=== PATIENT | male | born 1950 | race Caucasian/White ===

== ENCOUNTER → 2020-07-30 | Outpatient (CLI) | payer MEDICARE ==
--- NOTE | 2020-07-30 14:55 | XR ---
EXAMINATION TYPE: XR chest 2V DATE OF EXAM: 07/30/2020 CLINICAL HISTORY: C61,Z01.818,R58,R53.83,R05. TECHNIQUE: Frontal and lateral view of the chest. COMPARISON: 05/16/2015 chest radiograph FINDINGS: Mildly prominent interstitial lung markings redemonstrated, which may represent emphysemat ous change. The cardiomediastinal silhouette is within normal limits for size. Pulmonary vasculature is normal. There is no focal air space opacity, pleural effusion, or pneumothorax seen. The osseous s tructures are intact. IMPRESSION: No acute cardiopulmonary process.
[2020-07-30 15:09] LABS: Basophils # (A) 0.1 k/uL (0-0.2); Basophils % (A) 1 %; Eosinophils # (A) 0.1 k/uL (0-0.7); Eosinophils % (A) 1 %; HCT 45.1 % (39.0-53.0); HGB 14.5 gm/dL (13.0-17.5); Lymphocytes # (A) 1.6 k/uL (1.0-4.8); Lymphocytes % (A) 23 %; MCH 29.1 pg (25.0-35.0); MCHC 32.2 g/dL (31.0-37.0); MCV 90.5 fL (80.0-100.0); Mean Platelet Volume 7.8; Monocytes # (A) 0.3 k/uL (0-1.0); Monocytes % (A) 4 %; Neutrophils # (A) 4.7 k/uL (1.3-7.7); Neutrophils % (A) 68 %; Platelet Count 207 k/uL (150-450); RBC 4.98 m/uL (4.30-5.90); RDW 13.8 % (11.5-15.5); WBC 6.9 k/uL (3.8-10.6)
[2020-07-30 15:11] LABS: African American GFR (CKD) >90 (>60 ml/min/1.73 sqM); Anion Gap 4 mmol/L; Blood Urea Nitrogen 15 mg/dL (9-20); Calcium 9.3 mg/dL (8.4-10.2); Carbon Dioxide 25 mmol/L (22-30); Chloride 109 mmol/L (98-107); Glucose 94 mg/dL (74-99); Non-African American GFR(CKD) 87 (>60 ml/min/1.73 sqM); Potassium 4.5 mmol/L (3.5-5.1); Sodium 138 mmol/L (137-145)
[2020-07-30 15:13] LABS: Prothrombin Time 10.4 sec (9.0-12.0)
== END | disposition home or self-care (01) ==
LOC: LABPAT 13:26
PROVIDERS: ATTEND Urology
DX: Z01.818 Encounter for other preprocedural examination (principal); C61 Malignant neoplasm of prostate; R05 Cough; R58 Hemorrhage, not elsewhere classified; R53.83 Other fatigue
CPT/HCPCS: 71046; 80048; 85025; 85610; 93005

== ENCOUNTER 2020-08-06 10:56 | Day surgery (SDC) | payer MEDICARE ==
--- NOTE | 2020-08-04 08:26 | P.HPIHPCON ---
History of Present Illness H&P Date: 08/06/20 Chief Complaint: prostate cancer Mr Desai is 70 yo male with hx of gavi 7 (3+4) prostate cancer. We discussed with him the options including surgery and radiation therapy. We discussed the risk and benefits with him of each approach. I discussed with surgery the risk of urinary incontinence and erectile dysfunction, I also discussed with him risk of injury to nearby organs including bowels and rectum and blood vessels. I also discussed the risk from anesthesia with him. Which included but not limited to blood clots, heart attack, stroke and even . He understood all the risk and agreed to proceed with a robotic-assisted radical prostatectomy and pelvic lymph node dissection Consent for Procedure: I have explained the operation/procedure to the patient, including the risks, benefits, side effects, alternative therapies (including not receiving the proposed treatment or service), the likelihood of the patient achieving his/her goals, and potential recuperation problems for the procedure/sedation/analgesia, as well as any blood products, if indicated. I also explained to the patient the risks, benefits and side effects of the alternatives, as well as the risks related to not receiving the proposed procedure, care, treatment, or services. - Constitutional Constitutional: Denies chills, Denies fever - Respiratory Respiratory: Denies cough, Denies 7 - Gastrointestinal Gastrointestinal: Denies abdominal pain, Denies diarrhea, Denies nausea, Denies vomiting Past Medical History Past Medical History: No Reported History History of Any Multi-Drug Resistant Organisms: None Reported Additional Past Surgical History / Comment(s): right knee Past Psychological History: No Psychological Hx Reported Past Alcohol Use History: Occasional Past Drug Use History: None Reported Medications and Allergies Home Medications Medication Instructions Recorded Confirmed Type Orphenadrine [Norflex] 100 mg PO Q12H #10 tablet.er 08/04/14 Rx Allergies Allergy/AdvReac Type Severity Reaction Status Date / Time No Known Allergies Allergy Verified 08/04/14 19:54 Surgical - Exam - General well developed, well nourished, no distress, no pain - Respiratory normal respiratory effort, clear to auscultation - Abdomen Abdomen: soft, non tender - Psychiatric oriented to time, oriented to person, oriented to place, speech is normal Assessment and Plan Assessment: 70 yo male with hx of gavi 7 (3+4) prostate cancer -OR for robotic prostatectomy possibile pelvic lymph node dissection
[2020-08-05 11:16] VITALS: BMI 25.7
[~2020-08-06 10:56] MED LIST: DEXAMETHASONE SOD PHOSPHATE 10 MG/ML 1 ML VIAL IV ONE; HEPARIN SODIUM,PORCINE 5,000 UNIT/ML 1 ML VIAL SQ ONE; HYDROmorphone 0.5 MG/0.5 ML SYRINGE IVP PRN; ONDANSETRON 4 MG/2 ML VIAL IVP ONE
[2020-08-06] MEDS: LACTATED RINGERS 1,000 ML IV SCH ×2 (11:42→11:52)
[2020-08-06] MEDS ORDERED: LIDOCAINE 1% (10MG/ML) FOR IV START INTRADERMA ONE ×2 (11:43→11:53)
[2020-08-06] MEDS ORDERED: NEOSTIGMINE 1 MG/ML 10 ML VIAL ONE (12:51)
[2020-08-06] MEDS ORDERED: SUCCINYLCHOLINE CHLORIDE 100 MG/5 ML SYR IV ONE (12:51)
[2020-08-06] MEDS ORDERED: fentaNYL (PF) 50 MCG/ML 2 ML AMP ONE (12:51)
[2020-08-06] MEDS ORDERED: HYDROmorphone (PF) 1 MG/ML ONE (12:51)
[2020-08-06] MEDS ORDERED: PROPOFOL 10 MG/ML 20 ML VIAL IV ONE (12:51)
[2020-08-06] MEDS ORDERED: GLYCOPYRROLATE 0.2 MG/ML 2 ML VIAL ONE (12:51)
[2020-08-06] MEDS ORDERED: MIDAZOLAM 2 MG/2 ML VIAL ONE (12:51)
[2020-08-06] MEDS ORDERED: ROCURONIUM 10 MG/ML (10 ML VIAL) IV ONE (12:51)
[2020-08-06] MEDS ORDERED: LIDOCAINE 1% INJ 10MG/ML (20 ML MDV) ONE (12:51)
[2020-08-06] MEDS ORDERED: BUPIVACAINE (PF) 0.25% 30 ML VIAL SQ ONE ×2 (13:27)
[2020-08-06] MEDS ORDERED: LACTATED RINGERS 1,000 ML IV ONE (15:57)
[2020-08-06] MEDS ORDERED: HYDROcodone/APAP 5-325MG 1 EACH TAB PO PRN (17:12)
--- NOTE | 2020-08-06 17:19 | P.OP ---
Date of Procedure: 08/06/20 Preoperative Diagnosis: prostate cancer Postoperative Diagnosis: same Procedure(s) Performed: Robotic assisted laparoscopic prostatectomy Implants: None Anesthesia: ARNOLDO Surgeon: Kenji Adames Estimated Blood Loss (ml): 150 Pathology: other (Prostate, bilateral seminal vesicle) Condition: stable Disposition: PACU Indications for Procedure: Mr Desai is 70 yo male with hx of gavi 7 (3+4) prostate cancer. We discussed with him the options including surgery and radiation therapy. We discussed the risk and benefits with him of each approach. I discussed with surgery the risk of urinary incontinence and erectile dysfunction, I also discussed with him risk of injury to nearby organs including bowels and rectum and blood vessels. I also discussed the risk from anesthesia with him. Which included but not limited to blood clots, heart attack, stroke and even . He understood all the risk and agreed to proceed with a robotic-assisted radical prostatectomy and possible pelvic lymph node dissection Description of Procedure: After preoperative antibiotics were started, the patient was taken to the operating room. Anesthesia was induced and the patient was placed in supine position, with adequate padding of the pressure points, shoulders, back, legs and arms. He was then prepped and draped in the standard fashion. A critical pause was performed using two patient identifiers. A 16F edwards catheter was placed to gravity drainage. Initially attempted to obtain pneumoperitoneum using a Veress needle, but adequate insufflation could not be obtained, at this point decision was made to proceed with gel point placement. Incision was made supraumbilically, cutaneous tissue was dissected using electrocautery. At this time the fascia was identified and incised. The peritoneum was entered sharply, using finger sweeping there was some adhesions along the umbilicus, but no bowel was palpated but rather it was omentum. At this time the gel point was placed, A pneumo-peritoneum was created. Laparos copy was performed which showed no additional adhesions, there appeared to be no injury secondary to the Veress needle. Under direct vision a 8mm robotic ports was placed lateral to each rectus slightly below the camera port. The left iliac fossa 8mm port was placed. The right assistant chief nursing officer right iliac fossa 12mm port and right paramedian 5mm portwere placed. After the patient was placed in the trendelenberg position, the robot was then docked to the 8mm robotic ports and then each robotic arm and tower was checked in relation to the patient's legs and hands to avoid inadvertent compression. The peritoneal cavity was inspected. An inverted U-shaped incision began laterally to the left medial umbilical ligament and extended high across the midline to the right umbilical ligament. The limbs of the "U" extended to the level of the vasa on both sides. We next developed the preperitoneal space and the space of Retzius. Cautery was used to dissected the bladder away from the prostate. After the anterior bladder neck was incised and the bladder entered the the posterior bladder neck was exposed and the ureteral orifces identified. The posterior bladder neck was then incised and dissected away from the prostate. Of note the patient had a thickened bladder walll. The vas and the seminal vesicles were now exposed and dissected to their insertions into the prostate and were not spared. The posterior layer of the Denonvillier's fascia was incised to enter aime the plane between prostate and perirectal fat. Each lateral pedicle was controlled with clips and cautery for hemostasis. Nerve preservation was performed standard nerve sparing was performed on the left and VEIL was performed on the right. The puboprostatic ligament was incised where it inserted into the apex of the prostate and a plane between urethra and dorsal venous complex developed to expose the anterior urethral surface. The anterior wall of the urethra was transected with the cut setting a few millimet ers distal to the apex of the prostate. The dorsal vein was ligated using 3-0 V lock The urethrovesical anastomosis was performed . the posterior denovillers was reapproximated using 3-0 V lock. A 6 and 6 inch 3-0 V-Lock suture was used to anastomose the urethra and bladder, starting at the 6:00 posterior position. Mucosa was secured in every stitch, to ensure a mucosa to mucosa anastomosis. The stitch was regularly cinched and the anastomosis tightened. Care was taken to not violate the ureteral orifices. The Edwards catheter was advanced, the bladder filled, and the anastomosis was tested, as described above. Anastomsis was watertight at 200 mL The periumbilical fascia was closed with 1-0-PDS suture in figure of 8. All ports were closed with a subcuticular 4-0 monocryl and Dermabond. Sponge, instrument, and needle counts were correct at the end of the case x2. All specimens including prostate and lymph nodes were sent to pathology for diagnosis and will be available in a week. The patient tolerated the surgery well and without complication. He awoke without difficulty and was taken to the recovery room in stable condition
[2020-08-06] MEDS: KETOROLAC 15 MG/ML 1 ML VIAL IVP SCH ×2 (19:53→23:41)
[2020-08-06] MEDS: D5-0.45% NACL WITH KCL 20MEQ/L 1,000 ML IV SCH (19:53)
[2020-08-06] MEDS: HEPARIN SODIUM,PORCINE 5,000 UNIT/ML 1 ML VIAL SQ SCH (23:41)
[2020-08-07] MEDS: D5-0.45% NACL WITH KCL 20MEQ/L 1,000 ML IV SCH ×2 (02:50→10:37)
[2020-08-07] MEDS: KETOROLAC 15 MG/ML 1 ML VIAL IVP SCH ×2 (05:33→13:05)
[2020-08-07] MEDS: HEPARIN SODIUM,PORCINE 5,000 UNIT/ML 1 ML VIAL SQ SCH (08:14)
[2020-08-07 08:41] VITALS: BP 132/70; PULSE 61; RESP 18; TEMP 98.1
--- NOTE | 2020-08-07 13:34 | P.DS ---
Providers Date of admission: 08/07/20 12:40 Attending physician: Kenji Adames MD Primary care physician: Bella Zee [facility] Course: Mr Desai is 70 yo male with hx of gavi 7 (3+4) prostate cancer. He underwent a robotic-assisted prostatectomy on Aug 06. Please see op note dated 07/06 for full surgery detail. The patient did well in the postoperative period. He was discharged home on postoperative day #1 with the Quintana catheter. at time of discharge he was tolerating a diet, ambulating, pain is well-controlled. His abdominal exam was benign Plan - Discharge Summary Discharge Rx Participant: No New Discharge Prescriptions: New Ibuprofen 600 mg PO Q8H 7 Days #21 tab Cephalexin [Keflex] 500 mg PO Q12HR 3 Days #6 cap Sennosides [Senna] 8.6 mg PO DAILY #7 tablet traMADol HCL [Ultram] 50 mg PO Q6HR PRN 3 Days #6 tab PRN Reason: Pain No Action Tamsulosin [Flomax] 0.4 mg PO QAM Multivitamins, Thera [Multivitamin (formulary)] 1 tab PO DAILY Ferrous Sulfate [Feosol] 325 mg PO DAILY [id number] [phone] [Excedrin] 2 each PO Q6HR PRN PRN Reason: Pain Naproxen Sodium [Aleve] 220 mg PO BID PRN PRN Reason: Pain Restless Leg Syndrome Supp 1 tab PO DAILY Discharge Medication List [id number] [phone] [Excedrin] 2 each PO Q6HR PRN 08/05/20 [History] Ferrous Sulfate [Feosol] 325 mg PO DAILY 08/05/20 [History] Multivitamins, Thera [Multivitamin (formulary)] 1 tab PO DAILY 08/05/20 [History] Naproxen Sodium [Aleve] 220 mg PO BID PRN 08/05/20 [History] Restless Leg Syndrome Supp 1 tab PO DAILY 08/05/20 [History] Tamsulosin [Flomax] 0.4 mg PO QAM 08/05/20 [History] Cephalexin [Keflex] 500 mg PO Q12HR 3 Days #6 cap 08/07/20 [Rx] Ibuprofen 600 mg PO Q8H 7 Days #21 tab 11/05/20 [Rx] Sennosides [Senna] 8.6 mg PO DAILY #7 tablet 08/07/20 [Rx] traMADol HCL [Ultram] 50 mg PO Q6HR PRN 3 Days #6 tab 08/07/20 [Rx] Activity/Diet/Wound Care/Special Instructions: You may see some blood in the urine No heavy lifting or straining for 6 weeks You can stop taking the flomax Start your antibiotics one day before your appointment
== END 2020-08-07 15:15 | disposition home or self-care (01) ==
LOC: OR 10:56 → 4SSUR 18:03 → OR 08-07 12:40
PROVIDERS: ADMIT Urology; ATTEND Urology
DX: C61 Malignant neoplasm of prostate (principal); Z79.899 Other long term (current) drug therapy; Z97.2 Presence of dental prosthetic device (complete) (partial)
CPT/HCPCS: 55866; 38571; 86900; 86901; 86850; 88309; 87635; G0378; C1762; J2250; J1644 ×2; J1100; J2710; J0690; J2405; J2001; J3010; J1170; J1885 ×2; J0330; J2704